=== PATIENT | female | born 1985 | race Caucasian/White ===

== ENCOUNTER 2017-05-08 16:57 | Emergency (ER) | payer MEDICAID ==
[2017-05-08] MEDS ORDERED: IBUPROFEN 800 MG TABLET PO ONE (19:05)
--- NOTE | 2017-05-08 19:06 | ER Document Report ---
ED Neck/Back Problem - General Information source: Patient TRAVEL OUTSIDE OF THE [place] IN LAST 30 DAYS: No - HPI Associated symptoms: Other - see above - General Chief Complaint: Headache Stated Complaint: HEADACHE/NECK PAIN Time Seen by Provider: 05/08/17 18:58 Notes: Patient is a 31 year old female with a history of migraines presents to the ED with complaints of a right posterior neck pain that is constant and worse with movement x 1 week. Patient states this is different than prior migraine history. Patient denies any injury, numbness, weakness, tingling, cough or other cold symptoms. No other concerns or complaints at this time. (BANDAR OLSEN) - Related Data Allergies/Adverse Reactions: Iodinated Contrast- Oral and IV Dye [IV Dye, Iodine Containing] Allergy ( Verified 05/08/17 17:20) ketorolac tromethamine [From Toradol] Allergy (Verified 05/08/17 17:20) Past Medical History - General Information source: Patient - Social History Smoking Status: Never Smoker Chew tobacco use (# tins/day): No Frequency of alcohol use: None Drug Abuse: None Family History: Reviewed & Not Pertinent Patient has suicidal ideation: No Patient has homicidal ideation: No Neurological Medical History: Reports: Hx Migraine Renal/ Medical History: Denies: Hx Peritoneal Dialysis Past Surgical History: Reports: Hx Gynecologic Surgery - Ovarian cyst - Immunizations Hx Diphtheria, Pertussis, Tetanus Vaccination: Yes Review of Systems - Review of Systems Constitutional: No symptoms reported. denies: Weakness EENT: No symptoms reported Cardiovascular: No symptoms reported Respiratory: No symptoms reported. denies: Cough Gastrointestinal: No symptoms reported Genitourinary: No symptoms reported Female Genitourinary: No symptoms reported Musculoskeletal: See HPI, Neck pain Skin: No symptoms reported Hematologic/Lymphatic: No symptoms reported Neurological/Psychological: No symptoms reported. denies: Weakness, Numbness, Tingling Physical Exam - General General appearance: Appears well, Alert In distress: None - HEENT Head: Normocephalic, Atraumatic Eyes: Normal Extraocular movements intact: Yes Pupils: PERRL Tympanic membrane: Normal Neck: Other - reproducible tenderness with spasm noted over right posterior neck musculature extending to nuchal ridge, no occipital nerve involvement, normal 5/5 strength, neurologically intact - Respiratory Respiratory status: No respiratory distress Breath sounds: Normal - Cardiovascular Rhythm: Regular Heart sounds: Normal auscultation Murmur: No - Back Back: Normal - Extremities General upper extremity: Normal inspection, Normal ROM, Normal strength General lower extremity: Normal inspection, Normal ROM, Normal strength - Neurological Neuro grossly intact: Yes Cognition: Normal Orientation: AAOx4 [place] Coma Scale Eye Opening: Spontaneous [place] Coma Scale Verbal: Oriented [place] Coma Scale Motor: Obeys Commands Merry Coma Scale Total: 15 Speech: Normal Motor strength normal: LUE, RUE, LLE, RLE - Psychological Associated symptoms: Normal affect, Normal mood - Skin Skin Temperature: Warm Skin Moisture: Dry Skin Color: Normal - Vital signs Vitals: Temp Pulse Resp BP Pulse Ox 98.4 F 73 14 116/70 97 05/08/17 17:20 05/08/17 17:20 05/08/17 17:20 05/08/17 17:20 05/08/17 17:20 Course - Re-evaluation Re-evalutation: 05/08/17 19:11 Patient's pain is completely reproducible and appears consistent with a musculoskeletal type pain. She really does not even have headache as the pain extends from the right lower neck to the nuchal line. We discussed CT evaluation I do not feel it is warranted at this point. Will treat her symptomatically and she will get follow-up with her primary care physician. She understands warning signs to watch for for return. (MARGAUX CASTANEDA) - Vital Signs Vital signs: Temp Pulse Resp BP Pulse Ox 98.4 F 73 14 116/70 97 05/08/17 17:20 05/08/17 17:20 05/08/17 17:20 05/08/17 17:20 05/08/17 17:20 Discharge - Discharge Clinical Impression: Neck pain on right side Additional Instructions: Apply heat to right side of neck. Contact your physician for follow-up and further evaluation, consideration for physical therapy if not working. Start initially with ibuprofen for discomfort. Prescriptions: Acetaminophen with Codeine [Tylenol #3 Tablet] 1 - 2 each PO Q6HP PRN #14 tablet PRN Reason: For Pain Methocarbamol [Robaxin 750 mg Tablet] 750 - 1,500 mg PO Q8HP PRN #20 tablet PRN Reason: For Pain Promethazine HCl [Phenergan 25 mg Tablet] 1 - 2 tab PO Q6H PRN #15 tablet PRN Reason: Scribe Attestation: 05/08/17 19:07 I personally performed the services provided in the documentation, reviewed and edited the documentation which was dictated to the scribe in my presence. It accurately records my words and actions. SHAYY (MARGAUX CASTANEDA) Frediibe Documentation - Scribe Written by Kristin:: kristin Guzman, 05/08/2017, 1915 acting as scribe for :: Sophia
[2017-05-08 19:26] VITALS: BP 120/75
== END 2017-05-08 19:28 | disposition home or self-care (01) ==
LOC: ER 16:57
DX: R51 Headache (principal); M54.2 Cervicalgia
CPT/HCPCS: 99283; J3490

== ENCOUNTER 2018-05-23 16:49 | Emergency (ER) | payer SELFPAY ==
[2018-05-23 17:01] VITALS: BP 135/85
--- NOTE | 2018-05-23 17:50 | ER Document Report ---
HPI - HPI Patient complains to provider of: feet pain Onset: Other - 5 months ago, right yesterday Onset/Duration: Persistent, Waxing and waning Pain Level: 3 Context: 32 yo female c/o bilateral plantar foot pain, worse after standing. has lump bottom of left foot. No injury. Associated Symptoms: None Exacerbated by: Standing, Walking Relieved by: Denies - ROS ROS below otherwise negative: Yes Systems Reviewed and Negative: Yes All other systems reviewed and negative - MUSCULOSKELETAL Musculoskeletal: REPORTS: Extremity pain - bilateral foot pain Past Medical History - General Information source: Patient - Social History Smoking Status: Current Every Day Smoker Chew tobacco use (# tins/day): No Frequency of alcohol use: None Drug Abuse: None Lives with: Family Family History: Reviewed & Not Pertinent Patient has suicidal ideation: No Patient has homicidal ideation: No Neurological Medical History: Reports: Hx Migraine Renal/ Medical History: Denies: Hx Peritoneal Dialysis Past Surgical History: Reports: Hx Section - X2, Hx Gynecologic Surgery - Ovarian cyst - Immunizations Hx Diphtheria, Pertussis, Tetanus Vaccination: Yes Vertical Provider Document - CONSTITUTIONAL Agree With Documented VS: Yes Exam Limitations: No Limitations General Appearance: No Apparent Distress - INFECTION CONTROL TRAVEL OUTSIDE OF THE [place] IN LAST 30 DAYS: No - MUSCULOSKELETAL/EXTREMETIES Musculoskeletal/Extremeties: MAEW, FROM, Tender - plantar feet near the heel, no lumps palpated, the feet are symmetrical - NEURO Level of Consciousness: Alert Motor/Sensory: No Motor Deficit, No Sensory Deficit - DERM Integumentary: No Rash Course - Vital Signs Vital signs: Temp Pulse Resp BP Pulse Ox 98.5 F 90 14 135/85 H 99 05/23/18 16:59 05/23/18 16:59 05/23/18 16:59 05/23/18 16:59 05/23/18 16:59 Discharge - Discharge Clinical Impression: Bilateral plantar fasciitis, Old ankle injury right Condition: Good Disposition: HOME, SELF-CARE Instructions: Acetaminophen, Ibuprofen (General) ([facility]), Plantar Fasciitis or Heel Spur ([facility]) Additional Instructions: Wear supportive shoes at work with a sleeve support ankle Achilles tendon stretches as discussed Right ankle strengthening exercises as discussed 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
== END 2018-05-23 18:36 | disposition home or self-care (01) ==
LOC: ER 16:49
DX: M72.2 Plantar fascial fibromatosis (principal); S99.911D Unspecified injury of right ankle, subsequent encounter; X50.1XXD Overexertion from prolonged static or awkward postures, subsequent encounter; F17.200 Nicotine dependence, unspecified, uncomplicated
CPT/HCPCS: 99283

== ENCOUNTER → 2019-04-17 | Outpatient (CLI) | payer MEDICAID ==
--- NOTE | 2019-04-17 16:29 | RADIOLOGY REPORT (SQ) ---
EXAM DESCRIPTION: KUB COMPLETED DATE/TIME: 04/17/2019 4:16 pm REASON FOR STUDY: GENERALIZED ABDOMINAL PAIN R10.84 GENERALIZED ABDOMINAL PAIN COMPARISON: None. NUMBER OF VIEWS: One view. TECHNIQUE: Supine radiographic image of the abdomen acquired. LIMITATIONS: None. FINDINGS: BOWEL GAS PATTERN: Normal bowel gas pattern. No dilated loops. CALCIFICATIONS: No suspicious calcifications. SOFT TISSUES: No gross mass or suggestion of organomegaly. HARDWARE: None in the abdomen. BONES: No acute fracture. No worrisome bone lesions. OTHER: No other significant finding. IMPRESSION: NO RADIOGRAPHIC EVIDENCE FOR ACUTE ABDOMINAL DISEASE. TECHNICAL DOCUMENTATION: JOB ID: [id number] [employer]- All Rights Reserved Reading location - IP/workstation name: [email or web address]
== END ==
LOC: OD 16:04
PROVIDERS: ATTEND Physician Assistant
DX: R10.84 Generalized abdominal pain (principal)
CPT/HCPCS: 74018

== ENCOUNTER 2020-07-24 08:37 | Emergency (ER) | payer MEDICAID ==
[2020-07-24] MEDS ORDERED: NORMAL SALINE 1000 ML 1,000 ML IV ONE (10:23)
[2020-07-24] MEDS ORDERED: ACETAMINOPHEN 325 MG TABLET PO ONE (10:23)
[2020-07-24] MEDS ORDERED: ONDANSETRON HCL INJ/PF 4 MG/2 ML SDV IV ONE (10:23)
[2020-07-24 10:27] LABS: ABSOLUTE BASOPHILS # (AUTO) 0.1 10^3/uL (0.0-0.2); ABSOLUTE EOSINOPHILS # (AUTO) 0.4 10^3/uL (0.0-0.6); ABSOLUTE LYMPHOCYTES (AUTO) 2.3 10^3/uL (0.5-4.7); ABSOLUTE MONOCYTES (AUTO) 0.8 10^3/uL (0.1-1.4); EOSINOPHILS % (AUTO) 4.6 % (0-6); HEMATOCRIT 39.4 % (36.0-47.0); HEMOGLOBIN 13.7 g/dL (12.0-15.5); MEAN CORPUSCULAR HEMOGLOBIN 29.7 pg (27.0-33.4); MEAN CORPUSCULAR HGB CONC 34.8 g/dL (32.0-36.0); MEAN CORPUSCULAR VOLUME 86 fl (80-97); MONOCYTES % (AUTO) 8.9 % (3-13); PLATELET COUNT 289 10^3/uL (150-450); RED BLOOD COUNT 4.61 10^6/uL (3.72-5.28); RED CELL DISTRIBUTION WIDTH 14.1 % (11.5-14.0); SEGMENTED NEUTROPHILS % (AUTO) 58.5 % (42-78); TOTAL CELLS COUNTED % (AUTO) 100 %; WHITE BLOOD COUNT 8.5 10^3/uL (4.0-10.5)
--- NOTE | 2020-07-24 10:31 | ER Document Report ---
ED General - General Chief Complaint: Abdominal Pain Stated Complaint: VOMITING,FEVER,CHILLS,HEADACHE Time Seen by Provider: 07/24/20 10:00 Primary Care Provider: JACEK WADSWORTH PA-C [Primary Care Provider] - Follow up as needed Information source: Patient TRAVEL OUTSIDE OF THE [place] IN LAST 30 DAYS: No - HPI Onset: Other - Several days ago Onset/Duration: Gradual Associated symptoms: Body/muscle aches, Chest pain, Chills, Nonproductive cough, Earache, Fever, Headache, Nausea, Vomiting, Sore throat, Weakness Exacerbated by: Denies Relieved by: Denies Notes: Patient is a 34-year-old female with a past medical history of anxiety and depression who presents with multiple complaints. Patient states that several days ago she began having a headache. She does have a history of migraines and this feels like her normal migraine. Patient also complains of bilateral ear pressure, sore throat, nasal congestion. She also states that she has a nonproductive cough and feels congestion in her chest. Patient states she has abdominal pain more on the right lower side that travels up to her right upper quadrant and her left lower quadrant. Patient denies any diarrhea. She had one episode of vomiting yesterday. Currently she feels nauseous. Patient states she had a fever of T-max 102 yesterday. She has not taken anything for the pain today. She states she feels weak and achy. Patient denies sick contacts. Patient denies any contacts with COVID-19 diagnosis. Patient states she has mostly been staying home with occasional trips to the grocery store. She is tolerating p.o. - Related Data Allergies/Adverse Reactions: Iodinated Contrast Media [IV Dye, Iodine Containing] Allergy (Verified 07/24/20 09:57) ketorolac tromethamine [From Toradol] Allergy (Verified 07/24/20 09:57) Home Medications: gabapentin, hydroxyzine, citalopram, " control" Past Medical History - General Information source: Patient - Social History Smoking Status: Current Every Day Smoker Frequency of alcohol use: Occasional Drug Abuse: None Family History: Reviewed & Not Pertinent Neurological Medical History: Reports: Hx Migraine Renal/ Medical History: Denies: Hx Peritoneal Dialysis Psychiatric Medical History: Reports: Hx Depression Past Surgical History: Reports: Hx Section - X2, Hx Gynecologic Surgery - Ovarian cyst - Immunizations Hx Diphtheria, Pertussis, Tetanus Vaccination: Yes Review of Systems - Review of Systems Notes: CONSTITUTIONAL: Positive for fever and fatigue. SKIN: No rash. HENT: Positive for congestion, ear pain, and sore throat. EYES: No recent vision problems or eye pain. ENDOCRINE: No polyuria or polydipsia. CARDIOVASCULAR: Positive for chest tightness. RESPIRATORY: Positive for cough and congestion GASTROINTESTINAL: Positive for abdominal pain, nausea, vomiting GENITOURINARY: No dysuria. Positive for urinary pressure. MUSCULOSKELETAL: No joint pain or swelling. LYMPHATIC: No swollen glands. NEUROLOGIC: No seizures. Positive for headache. HEMATOLOGIC: No unusual bruising or bleeding. Physical Exam - Vital signs Vitals: Temp Pulse Resp BP Pulse Ox 98.0 F 77 15 110/67 97 07/24/20 08:49 07/24/20 08:49 07/24/20 08:49 07/24/20 08:49 07/24/20 08:49 Interpretation: Normal - Notes Notes: VITAL SIGNS: Within normal limits. GENERAL: No acute distress, non-toxic appearance. HEAD: Normal with no signs of head trauma. EYES: EOMI, conjunctiva normal, no discharge. EARS: Hearing grossly intact. Tympanic membranes normal bilaterally. NOSE: Normal. THROAT: Oropharynx is normal. NECK: Normal range of motion, no tenderness, supple, no lymphadenopathy, No adenopathy, no JVD. CHEST: Clear breath sounds bilaterally. No wheezes, rales, or rhonchi. CARDIAC: Regular rate and rhythm. S1 and S2. VASCULAR: No Edema. ABDOMEN: Soft. No guarding. Discomfort to palpation of left lower quadrant, suprapubic area, right lower quadrant, right upper quadrant GENITOURINARY: Normal, No tenderness LYMPATHTIC: No lymphadenopathy noted. MUSCULOSKELETAL: Good range of motion of all major joints. Extremities without clubbing, cyanosis or edema. NEUROLOGICAL: Alert and oriented x 3. No focal sensory or strength deficits. Speech normal. Follows commands appropriately. PSYCHIATRIC: Normal Affect, judgement and mood. SKIN: Normal appearance with no rashes or lesions. Course - Re-evaluation Re-evalutation: 07/24/20 19:37 Patient presents with multiple complaints. She had a negative CT abdomen. She initially stated her headache felt like her normal headache but then stated she had some blurry vision bilaterally which is abnormal. Her head CT was negative. Patient had a d-dimer that was negative and a negative troponin. On reassessment, patient is sleeping. She awakens to voice. She states she feels much better and is ready to go home. I informed her that she will be called with the results of her COVID test. She must self isolate until she is called with a negative result. Patient verbalized understanding. She was told to take Tylenol and ibuprofen as needed. Patient is very agreeable to the plan. She was given strict return precautions including shortness of breath, fever, worsening symptoms. - Vital Signs Vital signs: Temp Pulse Resp BP Pulse Ox 98.4 F 73 16 110/58 L 97 07/24/20 15:53 07/24/20 15:53 07/24/20 15:53 07/24/20 15:53 07/24/20 15:53 - Laboratory Result Diagrams: 07/24/20 09:30 07/24/20 09:30 Laboratory results interpreted by me: 07/24/20 07/24/20 09:30 09:30 RDW 14.1 H Sodium 136.8 L - Diagnostic Test Radiology reviewed: Image reviewed, Reports reviewed - EKG Interpretation by Me EKG shows normal: Sinus rhythm Rate: Normal Rhythm: NSR When compared to previous EKG there are: Previous EKG unavailable Additional EKG results interpreted by me: 07/24/20 14:56 EKG interpreted by me. Normal sinus rhythm at a rate of 72. QTc 456. No acute ST changes. No previous EKG available for comparison. Discharge - Discharge Clinical Impression: Cough Abdominal pain Qualifiers: Abdominal location: generalized Qualified Code(s): R10.84 - Generalized abdominal pain Headache Qualifiers: Headache type: unspecified Headache chronicity pattern: acute headache Intractability: not intractable Qualified Code(s): R51.9 - Headache, unspecified Condition: Stable Disposition: HOME, SELF-CARE Instructions: Abdominal Pain ([facility]) Additional Instructions: Please follow-up with your family doctor. You have been tested for COVID-19 at the clinic yesterday. Please self - isolate until you are called with a n egative result. Take Tylenol or ibuprofen as needed. Make sure you are staying hydrated. Please return for any shortness of breath, fevers, any worsening symptoms. Referrals: JACEK WADSWORTH PA-C [Primary Care Provider] - Follow up as needed
[2020-07-24 10:34] LABS: ALBUMIN 4.2 g/dL (3.5-5.0); ALKALINE PHOSPHATASE 54 U/L (38-126); ANION GAP 7 (5-19); ASPARTATE AMINO TRANSFERASE 34 U/L (14-36); BILIRUBIN,DIRECT 0.3 mg/dL (0.0-0.4); BILIRUBIN,TOTAL 0.5 mg/dL (0.2-1.3); BLOOD UREA NITROGEN 18 mg/dL (7-20); CALCIUM 8.8 mg/dL (8.4-10.2); CARBON DIOXIDE 24 mmol/L (22-30); CHLORIDE 106 mmol/L (98-107); GLUCOSE 86 mg/dL (75-110); POTASSIUM 4.7 mmol/L (3.6-5.0); TOTAL PROTEIN 6.9 g/dL (6.3-8.2)
[2020-07-24 10:42] LABS: APPEARANCE,URINE SLIGHTLY-CLOUDY; BILIRUBIN,URINE NEGATIVE (NEGATIVE); COLOR,URINE YELLOW; GLUCOSE, URINE NEGATIVE (NEGATIVE); KETONES,URINE NEGATIVE (NEGATIVE); LEUKOCYTE ESTERASE,URINE NEGATIVE (NEGATIVE); NITRITE,URINE NEGATIVE (NEGATIVE); PROTEIN,URINE NEGATIVE (NEGATIVE); UROBILINOGEN,URINE NEGATIVE mg/dL (<2.0)
--- NOTE | 2020-07-24 11:09 | RADIOLOGY REPORT (SQ) ---
EXAM DESCRIPTION: CHEST SINGLE VIEW IMAGES COMPLETED DATE/TIME: 07/24/2020 10:49 am REASON FOR STUDY: cough COMPARISON: None. EXAM PARAMETERS: NUMBER OF VIEWS: One view. TECHNIQUE: Single frontal radiographic view of the chest acquired. RADIATION DOSE: NA LIMITATIONS: None. FINDINGS: LUNGS AND PLEURA: No opacities, masses or pneumothorax. No pleural effusion. MEDIASTINUM AND HILAR STRUCTURES: No masses. Contour normal. HEART AND VASCULAR STRUCTURES: Heart normal in size. Normal vasculature. BONES: No acute findings. HARDWARE: None in the chest. OTHER: No other significant finding. IMPRESSION: No focal consolidation or other evidence of acute intrathoracic process. TECHNICAL DOCUMENTATION: JOB ID: [id number] 2010 [employer]- All Rights Reserved Reading location - IP/workstation name: [email or web address]
[2020-07-24 11:21] LABS: A TYPE INFLUENZA AG NEGATIVE (NEGATIVE); B INFLUENZA AG NEGATIVE (NEGATIVE)
--- NOTE | 2020-07-24 12:53 | EKG REPORT ---
SEVERITY:- NORMAL ECG - SINUS RHYTHM : Confirmed by: Loi Hernández MD 24-Jul-2020 12:52:15
[2020-07-24] MEDS ORDERED: DIPHENHYDRAMINE HCL 50 MG/ML VIAL IV ONE (13:10)
[2020-07-24] MEDS ORDERED: METOCLOPRAMIDE HCL INJ/PF 10 MG/2 ML SDV IV ONE (13:10)
--- NOTE | 2020-07-24 14:24 | RADIOLOGY REPORT (SQ) ---
EXAM DESCRIPTION: CT HEAD WITHOUT IMAGES COMPLETED DATE/TIME: 07/24/2020 2:06 pm REASON FOR STUDY: double vision, headache COMPARISON: None. TECHNIQUE: Axial images acquired through the brain without intravenous contrast. Images reviewed wi th bone, brain and subdural windows. Additional sagittal and coronal reconstructions were generated. Images stored on PACS. All CT scanners at this facility use dose modulation, iterative reconstruction, and/or weight based d osing when appropriate to reduce radiation dose to as low as reasonably achievable (ALARA). [facility]: Dose Right [facility]: CareDose [facility]: Dose Right [facility]: Teradose 4D [facility]: TBi Connect RADIATION DOSE: CT Rad equipment meets quality standard of care and radiation dose reduction techniq ues were employed. CTDIvol: 53.2 mGy. DLP: 1044 mGy-cm. mGy. LIMITATIONS: None. FINDINGS: VENTRICLES: Normal size and contour. CEREBRUM: No masses. No hemorrhage. No midline shift. No evidence for acute infarction. Normal gra y/white matter differentiation. No areas of low density in the white matter. CEREBELLUM: No masses. No hemorrhage. No alteration of density. No evidence for acute infarction. EXTRAAXIAL SPACES: No fluid collections. No masses. ORBITS AND GLOBE: No intra- or extraconal masses. Normal contour of globe without masses. CALVARIUM: No fracture. PARANASAL SINUSES: No fluid or mucosal thickening. SOFT TISSUES: No mass or hematoma. OTHER: No other significant finding. IMPRESSION: NORMAL BRAIN CT WITHOUT CONTRAST. EVIDENCE OF ACUTE STROKE: NO. COMMENT: Quality ID # [id number]: Final reports with documentation of one or more dose reduction techniques (e.g., Automated exposure control, adjustment of the mA and/or kV according to patient size, use of iterative reconstruction technique) TECHNICAL DOCUMENTATION: JOB ID: [id number] 2010 [employer]- All Rights Reserved Reading location - IP/workstation name: [email or web address]
--- NOTE | 2020-07-24 14:27 | RADIOLOGY REPORT (SQ) ---
EXAM DESCRIPTION: CT ABD/PELVIS WITH IV ONLY IMAGES COMPLETED DATE/TIME: 07/24/2020 2:06 pm REASON FOR STUDY: RLQ abdominal pain COMPARISON: None. TECHNIQUE: CT scan of the abdomen and pelvis performed using helical scanning technique with dynamic intravenous contrast injection. No oral contrast. Images reviewed with lung, soft tissue, and bone windows. Reconstructed coronal and sagittal MPR images reviewed. Delayed images for evaluation of the urinary system also acquired. All images stored on PACS. All CT scanners at this facility use dose modulation, iterative reconstruction, and/or weight based d osing when appropriate to reduce radiation dose to as low as reasonably achievable (ALARA). [facility]: Dose Right [facility]: CareDose [facility]: Dose Right [facility]: Teradose 4D [facility]: [employer]ma CONTRAST TYPE AND DOSE: contrast/concentration: Isovue 350.00 mmol/ml; Total Contrast Delivered: 88. 0 ml; Total Saline Delivered: 70.0 ml RENAL FUNCTION: None required. The patient is less than 50 years old. RADIATION DOSE: CT Rad equipment meets quality standard of care and radiation dose reduction techniq ues were employed. CTDIvol: 7.2 - 10.0 mGy. DLP: 938 mGy-cm.. LIMITATIONS: None. FINDINGS: LOWER CHEST: No significant findings. No nodules or infiltrates. LIVER: Normal size. No masses. No dilated ducts. SPLEEN: Normal size. No focal lesions. PANCREAS: No masses. No significant calcifications. No adjacent inflammation or peripancreatic fluid collections. Pancreatic duct not dilated. GALLBLADDER: No identified stones by CT criteria. No inflammatory changes to suggest cholecystitis. ADRENAL GLANDS: No significant masses or asymmetry. RIGHT KIDNEY AND URETER: No solid masses. No significant calcifications. No hydronephrosis or hyd roureter. LEFT KIDNEY AND URETER: No solid masses. No significant calcifications. No hydronephrosis or hydr oureter. AORTA AND VESSELS: No aneurysm. No dissection. Renal arteries, SMA, celiac without stenosis. RETROPERITONEUM: No retroperitoneal adenopathy, hemorrhage or masses. BOWEL AND PERITONEAL CAVITY: No masses or inflammatory changes. No free fluid or peritoneal masses. APPENDIX: Normal. PELVIS: No mass. No free fluid. Normal bladder. ABDOMINAL WALL: No masses. No hernias. BONES: No significant or acute findings. OTHER: No other significant finding. IMPRESSION: Normal appendix. No other evidence of acute intra-abdominal/pelvic process. TECHNICAL DOCUMENTATION: JOB ID: [id number] Quality ID # [id number]: Final reports with documentation of one or more dose reduction techniques (e.g., Au tomated exposure control, adjustment of the mA and/or kV according to patient size, use of iterative reconstruction technique) 2010 [employer]- All Rights Reserved Reading location - IP/workstation name: [email or web address] [facility]ENTERMichael
[2020-07-24 16:00] VITALS: BP 110/58
== END 2020-07-24 16:01 | disposition home or self-care (01) ==
LOC: ER 08:37
DX: R10.84 Generalized abdominal pain (principal); R05 Cough; R51.9 Headache, unspecified; R11.2 Nausea with vomiting, unspecified; H53.8 Other visual disturbances; F17.200 Nicotine dependence, unspecified, uncomplicated
CPT/HCPCS: 93005; 99285; 96361; 96374; 96375; 36415; 87086; 83690; 85025; 81025; 80053; 81001; 84484; 85379; 87804; 71045; 70450; 74177; 93010; J3490; J1200; J2765; J2405; J7030